=== PATIENT | male | born 2000 | race Caucasian/White ===

== ENCOUNTER 2021-02-07 21:48 | Emergency (ER) | payer OTHER ==
[~2021-02-07] VITALS: Ht 188 cm; Wt 117.9 kg
[~2021-02-07 21:48] MED LIST: ALLERCLEAR10 MG PO
[2021-02-07] MEDS ORDERED: LEVOFLOXACIN500 MG PO (21:56)
== END 2021-02-07 23:40 | disposition home or self-care (01) ==
LOC: ED 21:48
DX: M54.5 Low back pain (principal); Z79.899 Other long term (current) drug therapy
CPT/HCPCS: 81001; 99283

== ENCOUNTER 2024-05-20 21:55 | Emergency (ER) | payer OTHER ==
[~2024-05-20] VITALS: Ht 188 cm; Wt 130.7 kg
[~2024-05-20 21:55] MED LIST changes: +LEVOFLOXACIN500 MG PO
[2024-05-20] MEDS ORDERED: LACTATED RINGER'S 1,000 ML IV ONE (22:30)
[2024-05-20] MEDS ORDERED: FAMOTIDINE 20 MG/ 2 ML VIAL IV ONE (22:30)
[2024-05-20] MEDS ORDERED: ondansetron HCL 4 MG/2 ML VIAL IV ONE (22:30)
[2024-05-20] MEDS ORDERED: KETOROLAC TROMETHAMINE 30 MG/ML VIAL IV ONE (22:30)
[2024-05-20 23:15] LABS: BASOPHILS 0.6 % (0-2); EOSINOPHILS 1.9 % (0-6); NEUTROPHILS 63.4 % (39-80); RDW 13.5 (10.5-15.0)
[2024-05-20 23:17] LABS: HEMATOCRIT 50.3 % (35.0-50.0); HEMOGLOBIN 17.3 g/dL (12.0-18.0); LYMPHOCYTES 26.5 % (24-44); MCH 30.1 (27-36); MCHC 34.4 g/dl (30-36); MCV 87.5 fl (81-99); MONOCYTES 7.6 % (0-12); PLATELET COUNT 216 K/uL (140-440); RBC 5.75 M/ul (4.3-5.7)
[2024-05-20 23:27] LABS: ALBUMIN 4.2 g/dL (3.4-5.0); ALBUMIN/GLOBULIN RATIO 1.08 (1.1-2.4); ANION GAP 15.9 (7-21); BILIRUBIN, TOTAL 0.5 ng/dL (0.2-1.0); BUN/CREATININE RATIO 7.84 (6.0-28.6); CALCIUM 9.4 mg/dL (8.5-10.1); CREATININE, SERUM 1.02 mg/dL (0.70-1.30); POTASSIUM 3.9 mmol/L (3.5-5.1); PROTEIN, TOTAL 8.1 g/dL (6.4-8.2)
[2024-05-20 23:29] LABS: BILIRUBIN, URINE NEGATIVE (negative); BLOOD/HGB, URINE TRACE-L (Negative); KETONE, URINE NEGATIVE (Negative); LEUK ESTERASE, URINE NEGATIVE (negative); NITRITE, URINE NEGATIVE (negative)
[2024-05-20 23:29] LABS: MAGNESIUM 1.9 mg/dL (1.8-2.4)
[2024-05-20 23:38] LABS: BACTERIA, URINE NONE SEEN /hpf (negative); CRYSTALS, URINE NONE SEEN (0-1+); EPITHELIAL CELLS, URINE 0 /lpf (0-1+); RED BLOOD CELLS, URINE 0-1 /hpf (0-5); WHITE BLOOD CELLS, URINE 0-1 /HPF (0-5)
[2024-05-20 23:39] LABS: CASTS, URINE NONE SEEN \\lpf; COLLECTION TYPE, URINE CLEAN CATCH; REFLEX CULTURE, URINE No (No)
[2024-05-20 23:42] LABS: AMPHETAMINES, URINE NEGATIVE (NEGATIVE); BARBITURATES, URINE NEGATIVE (NEGATIVE); BENZODIAZEPINE, URINE NEGATIVE (NEGATIVE); BUPRENORPHINE, URINE NEGATIVE (NEGATIVE); CANNABINOID, URINE NEGATIVE (NEGATIVE); COCAINE, URINE NEGATIVE (NEGATIVE); ECSTASY, URINE NEGATIVE (NEGATIVE); FENTANYL, URINE NEGATIVE (NEGATIVE); METHADONE, URINE NEGATIVE (NEGATIVE); OPIATES, URINE NEGATIVE (NEGATIVE); OXYCODONE, URINE NEGATIVE (NEGATIVE); PHENCYCLIDINE, URINE NEGATIVE (NEGATIVE)
[2024-05-21] MEDS ORDERED: OMEPRAZOLE20 MG PO (00:06)
[2024-05-21 00:15] VITALS: BP 120/56
== END 2024-05-21 00:15 | disposition home or self-care (01) ==
LOC: ED 21:55
PROVIDERS: Internal Medicine
DX: K21.9 Gastro-esophageal reflux disease without esophagitis (principal); K76.0 Fatty (change of) liver, not elsewhere classified; Z79.2 Long term (current) use of antibiotics
CPT/HCPCS: 36415; 71045; 74177; 80053; 80307; 81001; 82553; 83690; 83735; 85025; 96375; 99284-25; G0480; J1885; J2405; J7121; Q9967